=== PATIENT | female | born 1985 | race Caucasian/White ===

== ENCOUNTER 2021-01-13 09:43 | Day surgery (SDC) | payer BC ==
[2021-01-10 17:09] VITALS: BMI 24.7
[2021-01-13] MEDS ORDERED: LIDOCAINE HCL 1%, 10 MG/ML (20ML VIAL) ONE (11:56)
[2021-01-13] MEDS ORDERED: EPINEPHrine/PF 1 MG/1 ML (1:1,000) AMPULE ONE (11:56)
[2021-01-13] MEDS ORDERED: MIDAZOLAM HCL 2 MG/2 ML SINGLE DOSE VIAL ONE (11:57)
[2021-01-13] MEDS ORDERED: PROPOFOL 20 ML ONE (11:57)
[2021-01-13] MEDS ORDERED: LIDOCAINE HCL/PF 2% SDV 5ML VIAL ONE (11:57)
[2021-01-13] MEDS ORDERED: ceFAZolin SODIUM 1 GM VIAL ONE ×2 (12:18→12:20)
[2021-01-13] MEDS ORDERED: GENTAMICIN SO4 80 MG/2 ML VIAL ONE (12:20)
[2021-01-13] MEDS ORDERED: DEXAMETHASONE SOD PHOSPHATE 4 MG/1 ML VIAL ONE (12:34)
[2021-01-13] MEDS ORDERED: ONDANSETRON 4 MG/2 ML VIAL ONE (12:34)
[2021-01-13] MEDS ORDERED: DESFLURANE GAS 240 ML BOTTLE IH ONE (14:00)
[2021-01-13] MEDS ORDERED: ONDANSETRON 4 MG/2 ML VIAL IVPUSH PRN (14:23)
[2021-01-13] MEDS ORDERED: oxyCODONE HCL 5 MG TABLET PO PRN (14:23)
[2021-01-13] MEDS ORDERED: ACETAMINOPHEN 1000 MG/100 ML VIAL (NON FORMULARY) IVPB PRN (14:24)
[2021-01-13] MEDS ORDERED: LACTATED RINGERS SOLUTION 1,000 ML IV SCH (14:30)
[2021-01-13] MEDS ORDERED: ACETAMINOPHEN INJECTION 100 ML IVPB ONE (14:46)
[2021-01-13 16:06] VITALS: BP 119/64; PULSE 81; TEMP 97.8
[2021-01-13] MEDS ORDERED: PATIENT'S OWN MEDICATION (NON-FORMULARY) (Cyanocobalamin (Vitamin B-12) [Vitamin B12] 2,50 PO SCH (22:00)
[2021-01-13] MEDS ORDERED: CHOLECALCIFEROL (VIT D3) 1,000 UNIT (25 MCG) TABLET PO SCH (22:00)
[2021-01-13] MEDS ORDERED: CYANOCOBALAMIN 1,000 MCG TABLET (FP) PO SCH (22:00)
== END 2021-01-13 16:07 | disposition home or self-care (01) ==
LOC: FASU 09:43
PROVIDERS: ATTEND Plastic Surgery
PROC: 0HNV0ZZ Release Bilateral Breast, Open Approach (ICD-10-PCS; principal; 2021-01-13 12:30)
PROC: 0JX60ZC Transfer Chest Subcutaneous Tissue and Fascia with Skin, Subcutaneous Tissue and Fascia, Open Approach (ICD-10-PCS; 2021-01-13 12:30)
DX: M95.4 Acquired deformity of chest and rib (principal); N64.89 Other specified disorders of breast; Z90.13 Acquired absence of bilateral breasts and nipples
CPT/HCPCS: 84703; 88300-TC; 88304-TC; 94760; J0131